=== PATIENT | male | born 2000 ===

== ENCOUNTER 2021-11-22 17:22 | Day surgery (SDC) ==
[2021-11-22] MEDS ORDERED: Lidocaine 1% (PF) 30 ML VIAL ONE (20:27)
[2021-11-22] MEDS ORDERED: Bupivacaine 0.5% 10 ML VIAL ONE (20:27)
[2021-11-22] MEDS ORDERED: Ondansetron PF 4 MG/2 ML Vial ONE ×2 (21:12→23:20)
[2021-11-22] MEDS ORDERED: Morphine 4 MG/ML VIAL ONE (21:12)
[2021-11-22] MEDS ORDERED: Bupivacaine 0.25% 10 ML VIAL ONE (22:16)
[2021-11-22] MEDS ORDERED: Bupivacaine PF 0.5% 30 ML VIAL ONE (22:16)
[2021-11-22] MEDS ORDERED: Bacitracin Zinc Ointment 30 gm TUBE ONE (22:16)
[2021-11-22] MEDS ORDERED: Fentanyl 100 MCG/2 ML VIAL ONE (22:52)
[2021-11-22] MEDS ORDERED: Meperidine HCl/PF 25 MG/ML VIAL ONE (22:52)
[2021-11-22] MEDS ORDERED: Dexmedetomidine 200 MCG/2 ML VIAL ONE (22:53)
[2021-11-22] MEDS ORDERED: Milk Of Magnesia 30 ML UDCUP PO PRN (23:13)
[2021-11-22] MEDS ORDERED: Acetaminophen 325 MG TAB PO PRN (23:13)
[2021-11-22] MEDS ORDERED: HYDROcodone/Acetaminophen 5/325 mg Tablet PO PRN (23:13)
[2021-11-22] MEDS ORDERED: Fentanyl 100 MCG/2 ML VIAL SLOW IVP PRN (23:13)
[2021-11-22] MEDS ORDERED: Morphine 2 MG/ML VIAL SLOW IVP PRN (23:13)
[2021-11-22] MEDS ORDERED: traMADol HCl 50 MG TAB PO PRN (23:13)
[2021-11-22] MEDS ORDERED: Ondansetron PF 4 MG/2 ML Vial IV PRN (23:13)
[2021-11-22] MEDS ORDERED: Promethazine HCl 25 MG/ML VIAL IM PRN (23:13)
[2021-11-22] MEDS ORDERED: Communication Order-Pharmacy FS SCH (23:15)
[2021-11-22] MEDS ORDERED: TETANUS AND DIPHTHERIA TOX/PF 0.5 ML DISP.SYRIN IM SCH (23:15)
[2021-11-22] MEDS ORDERED: Meperidine HCl/PF 25 MG/ML VIAL IM PRN (23:18)
[2021-11-22] MEDS ORDERED: Ketorolac Tromethamine 30 MG/ML VIAL IVP PRN (23:18)
[2021-11-22] MEDS ORDERED: Lidocaine 1% PF 5 ML VIAL ONE (23:20)
[2021-11-22] MEDS ORDERED: Dexamethasone 20 MG/5 ML VIAL ONE (23:20)
[2021-11-22] MEDS ORDERED: ePHEDrine 50 MG/ML VIAL ONE (23:20)
[2021-11-22] MEDS ORDERED: Succinylcholine 200 MG/10 ml SYRINGE FS ONE (23:20)
[2021-11-22] MEDS ORDERED: PROPOFOL 200 MG/20 ML VIAL ONE (23:20)
[2021-11-22 23:57] LABS: SARS-CoV-2 NAA Rapid Test DETECTED (NotDetected)
[2021-11-23] MEDS ORDERED: Ondansetron HCl/PF 4 MG/2 ML Vial IVP PRN ×2 (00:01→00:06)
[2021-11-23] MEDS ORDERED: Promethazine HCl 25 MG/ML VIAL IVPB PRN ×2 (00:01→00:06)
[2021-11-23] MEDS ORDERED: Promethazine HCl 25 MG/ML VIAL IM PRN ×2 (00:01→00:06)
[2021-11-23] MEDS ORDERED: Meperidine HCl/PF 25 MG/ML VIAL SLOW IVP PRN (00:06)
[2021-11-23] MEDS ORDERED: Ketorolac Tromethamine 30 MG/ML VIAL IVP PRN (00:06)
[2021-11-23] MEDS ORDERED: Ketorolac Tromethamine 30 MG/ML VIAL ONE (00:14)
[2021-11-23] MEDS ORDERED: Fentanyl 100 MCG/2 ML VIAL ONE (00:26)
[2021-11-23] MEDS ORDERED: Sodium Chloride 0.9% 1,000 ML IV SCH (01:15)
[2021-11-23] MEDS ORDERED: Vancomycin 1 GM in Premix Bag 1 BAG IVPB SCH (09:00)
[2021-11-23] MEDS ORDERED: Aspirin 81 mg Enteric Coated Tablet PO SCH (09:00)
== END 2021-11-23 01:00 | disposition home or self-care (01) ==
LOC: ERS 17:22 → SDC/OP 23:20
PROVIDERS: ATTEND Orthopaedic Surgery Hand Surgery
PROC: 0RS Upper Joints, Reposition (ICD-10-PCS; principal; 2021-11-23)
DX: S63.115A Dislocation of metacarpophalangeal joint of left thumb, initial encounter (principal); S62.292A Other fracture of first metacarpal bone, left hand, initial encounter for closed fracture; M24.242 Disorder of ligament, left hand; U07.1 COVID-19; F12.10 Cannabis abuse, uncomplicated; W10.8XXA Fall (on) (from) other stairs and steps, initial encounter
CPT/HCPCS: 76000; C1713; J1100; J1885; J2001; J2175; J2270; J2405; J2704; J3010; J3490; J7050; S0020; U0002